=== PATIENT | female | born 1960 | race Caucasian/White ===

== ENCOUNTER 2020-10-03 07:46 | Emergency (ER) | payer OTHER ==
[~2020-10-03] VITALS: Ht 167.6 cm; Wt 72.6 kg
[~2020-10-03 07:46] MED LIST: LISI20; TRIAOI; TRIHYD253B
[2020-10-03 08:15] LABS: PO2 Arterial 431 mmHg (80-100)
[2020-10-03 08:16] LABS: pH Blood Arterial 6.91 (7.35-7.45)
[2020-10-03 08:18] LABS: Mean Corpuscular HGB 22.8 pg (26.0-34.0); Mean Corpuscular HGB Conc 26.1 g/dL (31.5-36.5); Mean Corpuscular Volume 87 fL (80-100); Mean Platelet Volume 9.5 fL (9.1-12.4); NRBC ABSOLUTE 2.66 K/mm3 (0.00-0.02); NRBC Auto 23.8 /100 WBC (0.0-0.2); Platelet Count 260 K/mm3 (150-400); RDW Coefficient Variation 20.5 % (11.7-14.2); RDW Standard Deviation 62.6 fL (35.1-46.3); Red Blood Cell Count 1.58 M/mm3 (3.80-5.20); White Blood Cell Count 11.19 K/mm3 (4.00-11.30)
[2020-10-03 08:27] LABS: International Normalized Ratio 1.97; Prothrombin Time Results 20.3 Sec (9.7-11.5)
[2020-10-03 08:30] LABS: Hematocrit 13.8 % (33.0-51.0); Hemoglobin 3.6 g/dL (11.5-16.0)
[2020-10-03 08:31] LABS: Troponin I 0.064 ng/mL (0.000-0.040)
[2020-10-03 08:34] LABS: Alanine Aminotransfer (ALT/SGP 62 U/L (12-78); Albumin, Blood 1.1 g/dL (3.4-5.0); Albumin/Globulin Ratio 0.3 (0.8-1.8); Alk Phos 185 U/L (50-136); Anion Gap 22 mmol/L (6-16); Aspartate Aminotrans (AST/SGOT 303 U/L (12-37); Bilirubin, Total 1.4 mg/dL (0.1-1.0); Blood Urea Nitrogen 10 mg/dL (8-24); CO2, Blood 16 mmol/L (21-32); Calcium, Blood 7.4 mg/dL (8.5-10.1); Chloride, Blood 90 mmol/L (98-108); Creatinine, Blood 0.91 mg/dL (0.40-1.00); Globulin, Blood 3.6 g/dL (2.2-4.0); Glomerular Filtration Rate >60 (60-); Glucose, Blood 211 mg/dL (70-99); Potassium, Blood 7.1 mmol/L (3.5-5.5); Sodium, Blood 128 mmol/L (136-145); Total Protein, Blood 4.7 g/dL (6.4-8.2)
[2020-10-03 08:52] LABS: BAND PERCENT MAN 19 % (0-8); BASOPHILS PERCENT MAN 0 % (0-2); EOSINOPHILS PERCENT MAN 0 % (0-6); LYMPHOCYTES PERCENT MAN 26 % (21-46); METAMYELOCYTE ABSOLUTE MAN 0.11 K/mm3 (0.00-0.00); METAMYELOCYTE PERCENT MAN 1 % (0-0); MONOCYTES ABSOLUTE MAN 0.67 K/mm3 (0.16-1.47); MONOCYTES PERCENT MAN 6 % (4-13); NEUTROPHILS ABSOLUTE MAN 7.49 K/mm3 (1.96-9.15); SEG NEUTROPHILS PERCENT MAN 48 % (41-73); TOTAL CELLS COUNTED 100
[2020-10-03 08:59] LABS: Influenza A, PCR NEGATIVE (NEGATIVE); Influenza B, PCR NEGATIVE (NEGATIVE); Resp Syncytial Virus, PCR NEGATIVE (NEGATIVE); SARS-Cov-2 (COVID-19) PCR, MMC NEGATIVE (NEGATIVE)
== END 2020-10-03 11:07 ==
LOC: ER 07:46
PROVIDERS: Emergency Medicine
DX: I46.9 Cardiac arrest, cause unspecified (principal); D64.9 Anemia, unspecified; I25.2 Old myocardial infarction; Z86.73 Personal history of transient ischemic attack (TIA), and cerebral infarction without residual deficits; Z20.822 Contact with and (suspected) exposure to COVID-19
CPT/HCPCS: 0241U; 31500; 36600; 71045; 80053; 82803; 84484; 85025; 85610; 92950; 93005; 93010; 94002; 99285-25; J0461; J1815